=== PATIENT | female | born 1970 | race American Indian/Alaskan Native ===

== ENCOUNTER 2016-09-15 15:38 | Emergency (ER) | payer OTHER ==
[2016-09-15 17:06] VITALS: BP 126/90
[2016-09-15] MEDS ORDERED: BOOSTRIX IM ONE (22:54)
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
== END 2016-09-15 22:55 | disposition home or self-care (01) ==
LOC: ED 15:38
DX: T22.412A Corrosion of unspecified degree of left forearm, initial encounter (principal); I10 Essential (primary) hypertension; G43.909 Migraine, unspecified, not intractable, without status migrainosus; Z86.711 Personal history of pulmonary embolism; T65.891A Toxic effect of other specified substances, accidental (unintentional), initial encounter; Y93.G3 Activity, cooking and baking; Y99.8 Other external cause status; Y92.89 Other specified places as the place of occurrence of the external cause
CPT/HCPCS: 99281